=== PATIENT | female | born 1975 | race Caucasian/White ===

== ENCOUNTER → 2017-04-26 | Outpatient (CLI) | payer OTHER | LOC: MC.RAD 11:40 | DX: D24.2 Benign neoplasm of left breast (principal); D24.1 Benign neoplasm of right breast; Z98.82 Breast implant status ==

== ENCOUNTER → 2020-01-14 | Outpatient (CLI) | payer OTHER | LOC: COL.RAD 14:32 | DX: Z97.13 Presence of artificial right leg (complete) (partial) (principal) ==

== ENCOUNTER → 2020-04-24 | Outpatient (CLI) | payer OTHER | LOC: MC.RAD 16:28 | DX: Z12.31 Encounter for screening mammogram for malignant neoplasm of breast (principal); N64.1 Fat necrosis of breast; L90.5 Scar conditions and fibrosis of skin; N63.11 Unspecified lump in the right breast, upper outer quadrant; Z98.82 Breast implant status ==

== ENCOUNTER → 2020-05-02 | Outpatient (CLI) | payer OTHER | LOC: MC.RAD 14:22 | DX: N63.10 Unspecified lump in the right breast, unspecified quadrant (principal); N63.20 Unspecified lump in the left breast, unspecified quadrant ==

== ENCOUNTER → 2022-10-13 | Outpatient (CLI) | payer MEDICAID | LOC: MC.RAD 07:45 | DX: N60.11 Diffuse cystic mastopathy of right breast (principal) ==